=== PATIENT | male | born 2000 | race Caucasian/White ===

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

== ENCOUNTER 2022-10-27 02:14 | Emergency (ER) | payer MEDICAID, SELFPAY | END 2022-10-27 02:39 | disposition left against medical advice (07) | PROVIDERS: Emergency Provider Emergency Medicine; PCP Nurse Practitioner Primary Care | DX: H92.03 Otalgia, bilateral (principal) ==

== ENCOUNTER 2023-11-16 23:50 | Emergency (ER) | payer SELFPAY ==
[2023-11-16 23:57] VITALS: BP 129/67; PULSE 92; RESP 17; TEMP 36.6; O2SAT 98; BMI 39.9
--- NOTE | 2023-11-17 01:04 | ED_ITS ---
HPI - Wound/Laceration General Chief Complaint: Wound/Laceration Stated Complaint: lac on finger Time Seen by Provider: 11/17/23 00:55 Source: patient Mode of arrival: ambulatory Limitations: no limitations History of Present Illness ED Provider: Dr. Burris HPI narrative: patients dog got skunked, he went to open a can of tomato soup and cut his left 2nd digit distal phalynx with the lid of the can. Up to date with his tetanous Onset (ago): hour(s) Related Data Home Medications ?Medication ?Instructions ?Recorded ?Confirmed sertraline 50 mg tablet (Zoloft) 75 mg PO DAILY 10/29/20 Previous Rx's ?Medication ?Instructions ?Recorded meclizine 25 mg tablet 25 mg PO TID PRN dizziness #10 tabs 06/24/20 cyclobenzaprine 10 mg tablet 10 mg PO TID PRN muscle spasm #14 01/31/21 tabs ibuprofen 600 mg tablet 600 mg PO Q6H PRN pain #30 tabs 01/31/21 lidocaine 4 % topical patch 1 patch topical DAILY PRN pain #10 01/31/21 ea Allergies Allergy/AdvReac Type Severity Reaction Status Date / Time horse dander [HORSE DANDER] Allergy Unknown ITCHY NOSE Verified 11/17/23 00:01 SEAFOOD Allergy Unknown POSITIVE Uncoded 11/17/23 00:01 ALLERGY TEST Review of Systems Review of Systems: Yes all other systems are reviewed and are negative Neurologic: Denies Sensory deficit (Neuro) [facility] Past Medical History Medical History Anxiety Surgical History History of appendectomy Social History Social History Household Members: Family Alcohol intake: never Patient Tobacco Use Status: Never used Tobacco Current occupational status: employed Current occupation: Body work on cars Physical Exam Vital Signs: Vital Signs: Last Vital Signs Temp 97.9 F 11/16/23 23:57 Pulse 92 11/16/23 23:57 Resp 17 11/16/23 23:57 BP 129/67 11/16/23 23:57 Pulse Ox 98 11/16/23 23:57 O2 Del Method Room Air 11/16/23 23:57 BMI result Body Mass Index 39.9 Const: General: healthy appearing Nutritional Appearance: average body habitus Orientation/consciousness: oriented to person and patient oriented x3 Limitations: no limitations HEENT: Head: Yes normal to inspection Ears: external ears normal General nose exam: Normal external nose present Mouth: Normal oral and palatal mucosa present and oropharynx normal Throat: Yes posterior oropharynx normal Eyes: General: appearance normal, both eyes and all related structures Neck: Other: supple Neck: Yes normal visual inspection Chest: Chest palpation & inspection: normal inspection of the chest Resp: Auscultation: clear to auscultation bilaterally Cardio: Jugular venous distension: no JVD Rate: regular rate Rhythm: regular rhythm Heart sounds: S1 normal heart sound present and S2 normal heart sound present GI: Inspection: Yes normal to inspection Palpation (GI): Soft to palpation, nontender and No hepatosplenomegaly present Auscultation: normal bowel sounds : General: Yes no CVA tenderness Back/Spine/Pelvis: Back: no CVA tenderness Skin: General skin exam: no rashes or lesions noted Neuro: General: oriented to person and patient oriented x3 Cranial nerves: Yes CN's II-XII intact bilaterally Motor exam (neuro): 5/5 motor strength present throughout Sensory Exam: No Sensory deficit (Neuro) Extrem: Other: 2nd digit distal phalyx with curved 5cm laceration Psych: Appearance: grossly normal Course Reevaluation(s) Reevaluation #1: procedure: skin adhesive used for approximation of wound. Patient tolerated procedure well Time: 01:07 Medical Decision Making Differential Diagnosis Differential Diagnoses: The differential diagnosis associated with the presentation includes (finger laceration) Prescription Management I considered prescription management with: Antibiotic (clean wound no need for antibiotics) Discharge Plan Discharge Clinical Impression: Laceration Patient Disposition: Home, Self-Care Instructions: Skin Adhesive Care (ED) Prescriptions: No Action meclizine 25 mg tablet 25 mg PO TID PRN (Reason: dizziness) Qty: 10 0RF cyclobenzaprine 10 mg tablet 10 mg PO TID PRN (Reason: muscle spasm) Qty: 14 0RF lidocaine 4 % adhesive patch,medicated 1 patch topical DAILY PRN (Reason: pain) Qty: 10 0RF Rx Instructions: may leave on for up to 12 hrs ibuprofen 600 mg tablet 600 mg PO Q6H PRN (Reason: pain) Qty: 30 0RF sertraline [Zoloft] 50 mg tablet 75 mg PO DAILY Print Language: Latvian
[2023-11-17 01:26] VITALS: BP 129/67; PULSE 92; RESP 17; TEMP 36.6; O2SAT 98
== END 2023-11-17 01:27 | disposition home or self-care (01) ==
PROVIDERS: Emergency Provider Emergency Medicine
DX: S61.211A Laceration without foreign body of left index finger without damage to nail, initial encounter (principal); W26.8XXA Contact with other sharp object(s), not elsewhere classified, initial encounter; Y93.G3 Activity, cooking and baking; Y92.89 Other specified places as the place of occurrence of the external cause; Y99.8 Other external cause status; Z79.899 Other long term (current) drug therapy
CPT/HCPCS: 99282